=== PATIENT | male | born 1950 | race Asian ===

== ENCOUNTER 2020-05-02 17:15 | Outpatient (CLI) | payer OTHER ==
[2020-05-02 20:24] LABS: PLATELET COUNT 239 K/uL (142-355)
[2020-05-02 22:00] LABS: POTASSIUM 4.9 mmol/L (3.6-5.2)
== END 2020-05-02 23:39 | disposition home or self-care (01) ==
LOC: LAB 17:15
PROVIDERS: Family Medicine
DX: Z00.00 Encounter for general adult medical examination without abnormal findings (principal); I10 Essential (primary) hypertension; E11.9 Type 2 diabetes mellitus without complications; R53.81 Other malaise; R53.83 Other fatigue; Z79.899 Other long term (current) drug therapy; Z12.5 Encounter for screening for malignant neoplasm of prostate
CPT/HCPCS: 80053; 80061; 82306; 82607; 83036; 84153; 84439; 84443; 85027

== ENCOUNTER 2022-09-18 15:53 | Outpatient (CLI) | payer OTHER | END 2022-09-18 23:07 | disposition home or self-care (01) | LOC: US 15:53 | PROVIDERS: ATTEND Family Medicine | DX: N50.89 Other specified disorders of the male genital organs (principal); D64.89 Other specified anemias ==